=== PATIENT | female | born 1985 | race Two or more races ===

== ENCOUNTER 2017-05-20 21:34 | Emergency (ER) | payer MEDICAID, OTHER ==
[~2017-05-20] VITALS: Ht 167.6 cm; Wt 54.0 kg
--- NOTE | 2017-05-20 21:50 | NUR ---
PATIENT REFUSED SALINE LOCK INSERTION AND DRAWING OF BLOOD. HEALTH EDUCATION, RISK AND BENEFITS PROVIDED, PATIENT VERBALIZED UNDERSTANDING HOWEVER STILL REFUSED. DR RODRIGEZ NOTIFIED.
--- NOTE | 2017-05-20 21:50 | NUR ---
TO BED 7 A 31 YO FEMAL E BB SELF; LEFT PELVIC PAIN WITH NAUSEA. PATIENT IS AAOX4, AMBULATORY WITH STEADY GAIT. VSS. NAD NOTED. NONDIAPHORETIC. BREATHING EVEN AND UNLABORED. PER PATIENT SHE HAS HISTORY OF OVARIAN TORSION. COMFORT MEASURES RENDERED. GOWNED. AWAITING FOR ER MD WALTERS.
--- NOTE | 2017-05-20 22:41 | NUR ---
ONGOING AC OF THE PELVIS.
[2017-05-20 22:57] LABS: BILIRUBIN,URINE NEGATIVE (NEGATIVE); BLOOD, URINE NEGATIVE Ery/uL (NEGATIVE); COLOR,URINE YELLOW (YELLOW); KETONES,URINE NEGATIVE (NEGATIVE); LEUKOCYTE ESTERASE ,URINE 1+ (NEGATIVE); NITRITE, URINE NEGATIVE (NEGATIVE); PH,URINE 8.5 (5.0-8.0); PROTEIN,URINE NEGATIVE (NEGATIVE); UGLUCOSE NEGATIVE (NEGATIVE); UROBILINOGEN,URINE 0.2 EU/dL (0.2)
[2017-05-20 23:05] LABS: APPEARANCE,URINE SLIGHTLY HAZY (CLEAR); PREGNANCY TEST URINE QUAL NEGATIVE (NEGATIVE)
[2017-05-20 23:10] LABS: BACTERIA,URINE Rare /HPF (None Seen); RBC,URINE 0-2 /HPF (0-2); SQUAMOUS EPITHELIAL CELL,UR Few /HPF (None Seen)
[2017-05-20 23:43] VITALS: BP 119/80
== END 2017-05-20 23:54 | disposition home or self-care (01) ==
LOC: ER 21:41
DX: N83.202 Unspecified ovarian cyst, left side (principal)
CPT/HCPCS: 76856-TC; 80048-TC; 80076-TC; 81000-TC; 84703-TC; 85025-TC; 87086-TC; A4606; Z7610

== ENCOUNTER 2020-03-26 11:43 | Emergency (ER) | payer MEDICAID, OTHER ==
[~2020-03-26] VITALS: Ht 167.6 cm; Wt 54.4 kg
--- NOTE | 2020-03-26 11:58 | NUR ---
BIBS FROM HOME TO ER BED 12. AAOX4. NOT IN RESP DISTRESS. AMBULATORY. CAME IN FOR R FLANK PAIN, BURNING SENSATION WHEN URINATING AND DIFFICULTY URINATING SINCE THURSDAY. PT DENIES NAUSEA NOR VOMMITING. URINE COLLECTED AND SENT TO LAB. WAS AT THE BEDSIDE FOR EVAL. ORDERS RECEIVED AND NOTED.
[2020-03-26 12:04] LABS: APPEARANCE,URINE Clear (CLEAR); BILIRUBIN,URINE Negative (NEGATIVE); BLOOD, URINE Moderate Ery/uL (NEGATIVE); COLOR,URINE Yellow (YELLOW); KETONES,URINE Negative (NEGATIVE); PH,URINE 8.5 (5.0-8.0); PROTEIN,URINE 100 mg/dl (NEGATIVE); UGLUCOSE Negative (NEGATIVE)
[2020-03-26 12:05] LABS: LEUKOCYTE ESTERASE ,URINE Small (NEGATIVE); NITRITE, URINE Negative (NEGATIVE); UROBILINOGEN,URINE 0.2 EU/dL (0.2)
--- NOTE | 2020-03-26 12:35 | NUR ---
Patient discharged to home in stable condition. Written and verbal after care instructions given. Patient verbalizes understanding of instruction. Pt ambulatory with a steady gait
[2020-03-26 12:36] VITALS: BP 101/70
[2020-03-26 12:52] LABS: WBC,URINE 20-30 /HPF (0-3)
[2020-03-26 12:53] LABS: BACTERIA,URINE Few /HPF (None Seen); SQUAMOUS EPITHELIAL CELL,UR Few /HPF (None Seen)
== END 2020-03-26 12:37 | disposition home or self-care (01) ==
LOC: ER 11:47
DX: N39.0 Urinary tract infection, site not specified (principal); Z60.2 Problems related to living alone
CPT/HCPCS: 81000-TC; 84703-TC